=== PATIENT | male | born 1940 | race Caucasian/White ===

== ENCOUNTER 2018-01-05 16:54 | Emergency (ER) | payer MEDICARE, OTHER ==
[~2018-01-05] VITALS: Ht 170.2 cm; Wt 80.5 kg
[2018-01-05 17:18] VITALS: BP 159/93
[2018-01-05] MEDS ORDERED: HYDROcodone/acetaminophen 10/325mg tab PO ONE (18:45)
[2018-01-05] MEDS ORDERED: HYDR-565 PO (19:10)
[2018-01-05] MEDS ORDERED: morphine 4 MG/ML inj SYRINge IM ONE (19:20)
[2018-01-05] MEDS ORDERED: ondansetron 4mg rapidly disintigrating tab PO ONE (19:20)
[2018-01-05] MEDS ORDERED: ketorolac trometh inj. 60 MG/2 ML VIAL IM ONE (19:20)
== END 2018-01-05 19:49 | disposition home or self-care (01) ==
LOC: ER 16:55
DX: R07.81 Pleurodynia (principal); Z79.899 Other long term (current) drug therapy; V29.9XXA Motorcycle rider (driver) (passenger) injured in unspecified traffic accident, initial encounter; Y93.55 Activity, bike riding; Y92.89 Other specified places as the place of occurrence of the external cause; Y99.8 Other external cause status
CPT/HCPCS: 71045; 96372; 99284; J1885; J2270

== ENCOUNTER 2018-02-02 18:27 | Emergency (ER) | payer MEDICARE, OTHER ==
[~2018-02-02] VITALS: Ht 170.2 cm; Wt 80.1 kg
[2018-02-02] MEDS ORDERED: methylPREDNISolone sod succ 125mg/2ml vial IV ONE (20:50)
[2018-02-02] MEDS ORDERED: famotidine/PF 10 mg/ml inj IV ONE (20:50)
[2018-02-02] MEDS ORDERED: normal saline 1000ML IV soln IVB STA (20:50)
[2018-02-02] MEDS ORDERED: diphenhydrAMINE 50 mg/ml inj IV ONE (20:50)
[2018-02-02] MEDS ORDERED: epiNEPHrine 1 mg/ml inj SQ ONE (20:50)
[2018-02-02] MEDS ORDERED: EPIN0.1516 IM (21:00)
[2018-02-02 22:13] VITALS: BP 106/68
== END 2018-02-02 22:31 | disposition home or self-care (01) ==
LOC: ER 18:28
DX: T78.40XA Allergy, unspecified, initial encounter (principal); R22.1 Localized swelling, mass and lump, neck; X58.XXXA Exposure to other specified factors, initial encounter; Y93.89 Activity, other specified; Y92.89 Other specified places as the place of occurrence of the external cause; Y99.8 Other external cause status
CPT/HCPCS: 96372; 96374; 96375; 99284; J0171; J1200; J2930; J3490